=== PATIENT | male | born 1965 | race Caucasian/White ===

== ENCOUNTER 2021-08-01 09:56 | Emergency (ER) | payer OTHER, SELFPAY ==
[2021-08-01] MEDS ORDERED: Iopamidol 370 76% 100 ML VIAL FS ONE (09:57)
[2021-08-01 10:28] LABS: PTT 26.5 sec (22.9-36.1); Prothrombin Time 12.8 sec (12.0-14.7)
[2021-08-01 10:29] LABS: Base Excess-Venous 1.7 mmol/L (-2.0 to 3.0); CO2 Tension (PvCO2) 53.3 mmHg (42.0-51.0); Calcium, Ionized 1.15 mmol/L (1.15-1.33); Chloride 104 mmol/L (98-107); Hemoglobin - Calc 17.9 g/dL (14.0-18.0); Potassium 4.3 mmol/L (3.5-5.1); Sodium 142 mmol/L (138-145); T. Carbon Dioxide 30.6 mmol/L (22.0-28.0); vO2 Saturation-calc 56.1 % (60.0-85.0)
[2021-08-01 10:52] LABS: #Basophils 0.1 thou/uL (0.0-0.2); #Eosinphils 0.2 thou/uL (0.0-0.7); #Monocytes 0.6 thou/uL (0.11-0.59); #Neutrophils 4.8 thou/uL (1.40-6.50); %Basophils 1.3 % (0.0-1.0); %Eosinophils 2.7 % (0.0-10.0); %Lymphocytes 26.1 % (21.0-51.0); %Monocytes 8.2 % (0.0-10.0); %Neutrophils 61.7 % (42.0-75.0); Hemoglobin 16.8 g/dL (14.0-18.0); Mean Corpuscular HGB CONC 32.5 g/dL (32.0-36.0); Mean Corpuscular Hemoglobin 29.8 pg (27.0-31.0); Mean Corpuscular Volume 91.7 fL (78.0-98.0); Mean Platelet Volume 8.6 fL (7.4-10.4); Platelet Count 303 thou/uL (130-400); RBC Distribution Width 12.9 % (11.5-14.5); Red Blood Cell (RBC) Count 5.63 mill/uL (4.70-6.10); White Blood Cell (WBC) Count 7.8 thou/uL (4.8-10.8)
[2021-08-01 10:58] LABS: ALT (SGPT) 23 U/L (8-55); AST (SGOT) 24 U/L (5-34); Albumin 3.8 g/dL (3.5-5.0); Alkaline Phosphatase 65 U/L (40-110); Anion Gap 13 mmol/L (10-20); BUN (Urea Nitrogen) 16 mg/dL (8.4-25.7); Bilirubin, Total 0.6 mg/dL (0.2-1.2); CK (CPK) 352 U/L (30-200); Calc. Creatinine Clearance 0 mL/min (70-130); Calcium 8.8 mg/dL (7.8-10.44); Carbon Dioxide 26 mmol/L (22-29); Chloride 103 mmol/L (98-107); Globulin 2.6 g/dL (2.4-3.5); Glucose 107 mg/dL (70-105); Lipase 14 U/L (8-78); Magnesium 2.3 mg/dL (1.6-2.6); Potassium 4.2 mmol/L (3.5-5.1); Protein, Total 6.4 g/dL (6.0-8.3); Sodium 138 mmol/L (136-145)
[2021-08-01] MEDS ORDERED: Enoxaparin Sodium 30 MG/0.3 ML SYRINGE ONE ×2 (11:06→11:07)
[2021-08-01] MEDS ORDERED: Enoxaparin Sodium 100 MG/ML SYRINGE ONE (11:06)
[2021-08-01] MEDS ORDERED: Enoxaparin Sodium 40 MG/0.4 ML SYRINGE ONE (11:09)
[2021-08-01 11:14] LABS: CKMB 4.7 ng/mL (0-6.6)
== END 2021-08-01 11:58 | disposition short-term general hospital (02) ==
LOC: BURERS 09:56
DX: G45.9 Transient cerebral ischemic attack, unspecified (principal); I21.4 Non-ST elevation (NSTEMI) myocardial infarction; I16.1 Hypertensive emergency; R29.701 NIHSS score 1; R29.700 NIHSS score 0; E66.9 Obesity, unspecified; I10 Essential (primary) hypertension; E03.9 Hypothyroidism, unspecified; F17.220 Nicotine dependence, chewing tobacco, uncomplicated; Z68.45 Body mass index [BMI] 70 or greater, adult; Z79.899 Other long term (current) drug therapy
CPT/HCPCS: 36416; 70450; 70496; 71045; 80053; 82330; 82435; 82550; 82553; 82803; 83605; 83690; 83735; 84132; 84295; 84443; 84484; 85025; 85610; 85730; 93005; 94760; 96372; J1650; Q9967